=== PATIENT | female | born 1965 | race Caucasian/White ===

== ENCOUNTER 2019-06-19 09:02 | Emergency (ER) | payer MEDICAID, OTHER ==
[2019-06-19 10:34] LABS: Hemoglobin 9.3 g/dL (12.0-16.0); Mean Corpuscular HGB CONC 32.4 g/dL (32.0-36.0); Mean Corpuscular Hemoglobin 28.2 pg (27.0-31.0); Mean Corpuscular Volume 87.1 fL (78.0-98.0); Platelet Count 387 thou/uL (130-400); RBC Distribution Width 18.5 % (11.5-14.5); White Blood Cell (WBC) Count 12.7 thou/uL (4.8-10.8)
[2019-06-19 10:49] LABS: ALT (SGPT) 105 U/L (8-55); AST (SGOT) 216 U/L (5-34); Albumin 2.7 g/dL (3.5-5.0); Alkaline Phosphatase 1887 U/L (40-110); Anion Gap 15 mmol/L (10-20); BUN (Urea Nitrogen) 7 mg/dL (9.8-20.1); Bilirubin, Total 23.7 mg/dL (0.2-1.2); Calc. Creatinine Clearance 0 mL/min (70-130); Calcium 8.8 mg/dL (7.8-10.44); Carbon Dioxide 21 mmol/L (22-29); Chloride 101 mmol/L (98-107); Estimated GFR-MDRD 83; Globulin 3.5 g/dL (2.4-3.5); Glucose 73 mg/dL (70-105); Lipase Less than 4 U/L (8-78); Potassium 3.2 mmol/L (3.5-5.1); Protein, Total 6.2 g/dL (6.0-8.3); Sodium 134 mmol/L (136-145)
[2019-06-19 10:55] LABS: Anisocytosis SLIGHT = 6-15 cells (100X) (0-5/hpf); Band 12 % (5-11); Eosinophils 2 % (0-10); Hypochromia SLIGHT = 6-15 cells (100X) (0-5/hpf); Lymphocytes 19 % (21-51); MDiff Complete? YES; Metamyelocyte 3 % (0-0); Monocytes 2 % (0-10); Myelocyte 2 % (0-0); Neutrophil 60 % (42-75)
[2019-06-19] MEDS ORDERED: Ondansetron PF 4 MG/2 ML Vial ONE (13:05)
[2019-06-19] MEDS ORDERED: Morphine 4 MG/ML VIAL ONE (13:05)
[2019-06-19] MEDS ORDERED: Iopamidol-370 76% 500 ML 1 ML ONE (13:12)
--- NOTE | 2019-06-19 13:13 | CT ---
CT ABDOMEN AND PELVIS PERFORMED WITH CONTRAST ENHANCEMENT: Date: 06/19/2019 HISTORY: Right-sided abdomen pain, jaundice. FINDINGS: The lung bases show some COPD type change. There is massive intrahepatic biliary ductal dilatation. There is a right lobe liver mass measuring at least 6.7 cm in size. It shows peripheral enhancement, but does not have the typical appearance of a hemangioma. This is not truly central in location and d oes not definitely explain the ductal dilatation. It is difficult to follow the extrahepatic common b ile duct, which does not appear dilated. The gallbladder is not distended, but there do appear to be gallstones present. Anteriorly, the fundus region of the gallbladder merges with this right lobe live r mass. There are some small rosey hepatis nodes seen. The spleen is a somewhat thin, elongated spleen, borde rline in size, measuring 14.0 cm in length. Pancreas shows no ductal dilatation. Right and left adrenal glands, and right and left kidneys are normal. There is a soft tissue nodular density seen along the inferior margin of the right lobe of the liver which may represent an area of peritoneal seeding or an unusual appearance for a lymph node. There is no significant periaortic or mesenteric adenopathy. CT of pelvis was performed with contrast enhancement. No adenopathy, mass, or free fluid. IMPRESSION: 1. Massive intrahepatic ductal dilatation. 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 I think another possibility that th is represents a Kl[place]kin type tumor and cholangiocarcinoma, although I favor is more likely related t o a primary gallbladder cancer given this appearance. 2. There are some areas of faint soft tissue nodularity along the inferior margin of the right lobe of the liver, which could represent small metastatic implants. There is no ascites demonstrated. The right lobe liver mass measures in the 7.0 cm range. 3. Mild splenomegaly. 4. Small portal nodes. 5. Gallstones incidentally noted within the gallbladder. Findings telephoned to Dr. Garcia. CODE CR. POS: [facility]
[2019-06-19 14:12] LABS: Bilirubin 4+ (Negative); Blood, Urine Negative (Negative); Clarity Turbid (Clear); Glucose, Urine (Dipstick) Normal (Negative); Leukocyte Negative Leu/uL (Negative); Nitrite Negative (Negative); Protein, Urine (Dipstick) Negative (Neg-Trace); Urobilinogen Normal mg/dL (Less than 2)
== END 2019-06-19 18:54 | disposition short-term general hospital (02) ==
LOC: ERS 09:02
DX: K83.1 Obstruction of bile duct (principal); E80.6 Other disorders of bilirubin metabolism; R16.0 Hepatomegaly, not elsewhere classified; I10 Essential (primary) hypertension; F17.210 Nicotine dependence, cigarettes, uncomplicated; F31.9 Bipolar disorder, unspecified; I25.2 Old myocardial infarction
CPT/HCPCS: 36415; 74177; 80053; 81003; 83690; 85025; 96374; 96375; J2270; J2405; Q9967